=== PATIENT | male | born 1995 | race Caucasian/White ===

== ENCOUNTER 2025-05-29 14:19 | Emergency (ER) | payer OTHER, SELFPAY ==
[2025-05-29 14:20] VITALS: BP 138/83
--- NOTE | 2025-05-29 15:10 | ED.GENMED ---
History of Present Illness
General
Chief Complaint: Abdominal Symptoms
Source: patient
Exam Limitations: none
Time Seen by Provider: 05/29/25 15:10
Nursing documentation reviewed up to this point in time: agreed with
History of Present Illness
History of Present Illness:
Patient is a 30-year-old male who presents to the ER for evaluation. For the past 2 days he has noticed that his urine was dark in color. He reports it looked like beet juice or iced tea. He denies any back pain. Denies any frequency urgency,
dysuria. denies any injury. Denies any history of kidney stones or diverticulitis. He has no pain presently however he has had a little bit of lower abdominal pain which is interittent.
Phy Exam
General Physical Exam
General Presentation: no apparent distress
General age: appears stated age
General Skin: warm and dry
General Habitus: normal
General Mental: alert
General Hydration: appears well hydrated
Gastrointestinal Exam
Gastrointestinal Exam: non tender and soft
Neurological Exam
Neurological Exam: alert and oriented x3
Musculoskeletal Exam
Musculoskeletal Exam: full ROM
Skin Exam
Skin Exam: normal color and warm/dry
Psychiatric Exam
Psychiatric Exam: normal mood/affect
Course
Orders/Labs/Results
Orders:
Orders
05/29/25 15:21
CT Abd/pel Without Iv Or Oral Urgent
Comment:
Reason For Exam: pain
IV Insert/Care/Rem.- Treatment PRN
0.9% Sodium Chloride 1000 ml [Nss] 1,000 ml IV BOLUS
05/29/25 15:28
Complete Blood Count/With Diff Urgent
Comprehensive Metabolic Panel Urgent
Creatine Phosphokinase Urgent
Comment: ADD ON
05/29/25 15:31
UA Reflex to Culture [Urinalysis Reflex To Culture] Urgent
Date Specimen was Collected: 05/29/25
Time Specimen was Collected: 15:29
Urine Microscopic Reflex Cult Urgent
05/29/25 15:52
Add On- LAB Urgent
Tests Added?: cpk
Abnormal Lab Results
05/29/25 05/29/25
15:28 15:31
MCH 31.2 H pg
(27.0-31.0)
Carbon Dioxide 32 H mmol/L
(22-30)
Glucose 100 H mg/dl
(70-99)
Ur Occult Blood Reflex 4+ A
(Negative)
Urine RBC 40-50 A /HPF
(0-2)
Urine Albumin (Reflex) 1+ A
(Neg - Trace)
05/29/25 15:28
05/29/25 15:28
Vital Signs
Initial and Last Documented VS:
Initial Vital Signs
Temp Pulse Resp BP Pulse Ox
98.2 F 60 16 138/83 99
05/29/25 14:20 05/29/25 14:20 05/29/25 14:20 05/29/25 14:20 05/29/25 14:20
Last Documented Vital Signs
Temp Pulse Resp BP Pulse Ox
98.2 F 68 18 136/78 100
05/29/25 14:20 05/29/25 16:55 05/29/25 16:55 05/29/25 16:55 05/29/25 16:55
Waiter/Waitress Formal consulted with Physician
Waiter/Waitress Formal consulted with physician?: Yes
Name of Physician Consulted: Trudy
MDM/Problems Addressed
Differential Diagnosis Includes:
Not limited to hematuria, UTI, renal colic
MDM/Problems Addressed:
Patient is a 30-year-old male who present with dark urine and intermittent abdominal pain. On exam patient is in no acute distress no abdominal tenderness. Denies any recent fever chills nausea vomiting. He is well-appearing. Urinalysis does
show 40�50 RBCs. CAT scan was done and does show a 8 mm. Patient is in no acute distress comfortable here normal white count no evidence of UTI. Stable for discharge home on Flomax and NSAIDs with close outpatient follow-up urology
*Radiology
Radiology exam reviewed: radiology read reviewed
*Pulse Oximetry
SaO2: 99
Oxygen Mode of Delivery: Room air
Patient hypoxic: no
*Critical Care Note
Total Time (30-74mins, 75-104mins- exclusive of procedures): Not Applicable
Patient Management
Discussion with other providers: Ventilation Mechanic (Urology Dr. Hannon )
ED Attending Note
-
Portions of this chart may have been created with voice recognition software.� Occasional wrong word or��sound alike� substitutions may have occurred due to the inherent limitations of voice recognition software.
Discharge Plan
Departure
Patient Disposition: Home (Routine Discharge)
Date of Disposition: 05/29/25
Time of Disposition: 18:44
Patient with high blood pressure during this ER visit?: Yes
Condition: Fair
Covid-19: Not Applicable
Discharge Problem:
Renal colic
Instructions: Kidney stones in adults - ED discharge instructions, BLOOD PRESSURE
Prescriptions:
New
tamsulosin [Flomax] 0.4 mg capsule
0.4 mg PO DAILY Qty: 7 0RF
Referrals:
Mirza Torre MD [Family Provider, Internal Medicine]
Jamil Hannon MD [Active, Urology]
Activity Restrictions/Additional Instructions:
As discussed a prescription for Flomax was sent to your pharmacy take as directed. Strain all urine. Stay well-hydrated. Ibuprofen every 8 hours with food. Please call urology on Saturday to schedule an appointment within the next week. Return
however to the ER for any worsening of symptoms if increasing pain nausea vomiting fever chills.
In addition please follow-up with family doctor for further evaluation of mild splenomegaly which was found on your CAT scan.
Interventions
Interventions:
*Risk Screen - Suicide Last Done: 05/29/25 14:21
*General Assessment Last Done: 05/29/25 15:45
*Neglect/Abuse Screening Last Done: 05/29/25 14:21
*ED- Fall Risk Assessment Last Done: 05/29/25 15:45
*ED COVID-19 Vaccine History Last Done: 05/29/25 15:45
LX-Mtonmf-Kubteplqgo Assessment Last Done: 05/29/25 15:45
Discharge Date and Time
Print Language: DOMINICAN
[2025-05-29] MEDS: NSS 1000 IV (15:32)
[2025-05-29 15:40] LABS: Hematocrit 45.6 % (39.0-52.0); Hemoglobin 16.3 g/dL (13.0-18.0); Mean Corp Hgb Conc. 35.7 g/dL (33.0-37.0); Mean Corpuscular Volume 87.2 fL (80.0-94.0); Nucleated Red Blood Cells % 0 % (-); Platelet Count 149 10^3/uL (130-400); Red Cell Dist. Width 12.0 % (11.5-14.5)
[2025-05-29 15:46] LABS: Urine Character Clear (Clear)
[2025-05-29 15:58] LABS: Urine Red Blood Cell 40-50 /HPF (0-2); Urine Squamous Cell 0-2 /LPF (Few); Urine White Cell 0-2 /HPF (0-5)
[2025-05-29 16:06] LABS: ALT (SGPT) 16 U/L (0-50); AST (SGOT) 19 U/L (17-59); Albumin 4.9 g/dl (3.5-5.0); Alkaline Phosphatase 60 U/L (38-126); Blood Urea Nitrogen 11 mg/dl (9-20); Calcium 9.9 mg/dl (8.4-10.2); Carbon Dioxide 32 mmol/L (22-30); Chloride 103 mmol/L (98-107); Glucose 100 mg/dl (70-99); Potassium 4.6 mmol/L (3.5-5.1); Sodium 140 mmol/L (135-145); Total Protein 7.9 g/dl (6.3-8.2); eGFR > 60.00
[2025-05-29 16:55] VITALS: BP 136/78
== END 2025-05-29 18:53 | disposition home or self-care (01) ==
LOC: EMR 14:19
PROVIDERS: Nurse Practitioner; EMERGENCY PHYSICIAN Emergency Medicine; FAMILY PHYSICIAN Internal Medicine
DX: N13.2 Hydronephrosis with renal and ureteral calculous obstruction (principal); R31.29 Other microscopic hematuria
CPT/HCPCS: 96360; 99284; 74176; 80053; 81003; 81015; 82550; 85025